=== PATIENT | male | born 1940 | race Caucasian/White ===

== ENCOUNTER 2022-11-14 05:09 | Observation (INO) ==
--- NOTE | 2022-10-10 14:59 | PAT Medication Instructions ---
Medication Instructions Date of Service October 10, 2022 Home Medications Medication Instructions Recorded atorvastatin 40 mg tablet 40 mg PO DAILY #90 tabs 10/02/21 metformin 1,000 mg tablet 1,000 mg PO BID #180 tabs 08/05/22 aspirin 81 mg tablet,delayed release (Adult Low Dose Aspirin) 81 mg PO QAM atorvastatin 40 mg tablet 40 mg PO DAILY cyanocobalamin (vitamin B-12) 2,000 mcg tablet 2,000 mcg PO QAM metformin 1,000 mg tablet 1,000 mg PO BID amlodipine 10 mg tablet 10 mg PO QAM atenolol 50 mg tablet 50 mg PO QAM empagliflozin 10 mg tablet (Jardiance) 10 mg PO PM lisinopril 40 mg tablet 40 mg PO QAM Continue as directed atorvastatin 40 mg tablet 40 mg PO DAILY STOP taking 3 days before surgery empagliflozin 10 mg tablet (Jardiance) 10 mg PO PM DO NOT take the morning of surgery lisinopril 40 mg tablet 40 mg PO QAM cyanocobalamin (vitamin B-12) 2,000 mcg tablet 2,000 mcg PO QAM metformin 1,000 mg tablet 1,000 mg PO BID Take morning of surgery With a small sip of water, OTHERWISE NOTHING TO EAT OR DRINK AFTER MIDNIGHT: aspirin 81 mg tablet,delayed release (Adult Low Dose Aspirin) 81 mg PO QAM (unless surgeon directed otherwise) amlodipine 10 mg tablet 10 mg PO QAM atenolol 50 mg tablet 50 mg PO QAM Take evening before surgery metformin 1,000 mg tablet 1,000 mg PO BID Other Notes If you have any questions please call us at [phone] or [phone] or [phone] or [phone]
--- NOTE | 2022-10-18 10:40 | Anesthesiology Consultation ---
Date of Service October 18, 2022 Assessment & Plan (1) Encounter for pre-operative examination: Chart Review Chart Review: Acceptable Risk for Surgery (pending cardiac clearance for new onset LBBB ) and Patient seen in Pre Admission Testing - Will set up for cardio clearance for new onset LBBB - Check BSG AM DOS -Due to age- patient is NOT an OPJ candidate Per PAT appt on 10/18/22, patient denies any recent travel or large group activities. Pt is vaccinated for Covid. Will leave to surgeon's discretion if preop Covid testing needed. Educated on importance of using Covid precautions one week prior to surgery Teaching & Discussion Pre-Anesthesia Teaching/Discussion Notes: Instructed NPO after midnight before surgery,except medications with 15 cc of water. Medication instructions provided according to the PAT guidelines. History Surgery Operation Date: 11/14/22 07:00 Proposed Procedures p Left Total Knee Arthroplasty - Drew Bella MD Height/Weight Height: 5 ft 8 in Weight: 81.9 kg Allergies Allergy/AdvReac Type Severity Reaction Status Date / Time No Known Allergies Allergy Verified 10/11/22 10:31 Medications Home Medications Medication Instructions Recorded Confirmed Last Taken aspirin 81 mg tablet,delayed 81 mg PO QAM 10/02/21 10/11/22 Unknown release (Adult Low Dose Aspirin) cyanocobalamin (vitamin B-12) 2,000 mcg PO QAM 10/02/21 10/11/22 Unknown 2,000 mcg tablet metformin 1,000 mg tablet 1,000 mg PO BID #180 tabs 08/05/22 10/11/22 Unknown amlodipine 10 mg tablet 10 mg PO QAM 10/10/22 10/11/22 Unknown atenolol 50 mg tablet 50 mg PO QAM 10/10/22 10/11/22 Unknown empagliflozin 10 mg tablet 10 mg PO PM 10/10/22 10/11/22 Unknown (Jardiance) lisinopril 40 mg tablet 40 mg PO QAM 10/10/22 10/11/22 Unknown Past Medical History Medical History (Updated 10/18/22 @ 11:16 by Haven Wells PA-C) CAD (coronary artery disease) Stent 25 years ago PCI to LAD and RCA 2007 per records Diabetes mellitus NIDDM Well controlled and stable DJD (degenerative joint disease) History of COVID-2019 > not hospitalized HLD (hyperlipidemia) HTN (hypertension) Proteinuria Seen by nephro 10/11/22- continue meds- follow up in one year Exercise / Class Metabolic Activity III < 4 Walking/Shop/Light housework (no chest pain or SOB with flat surface ambulation - uses cane only occ ) Past Family History Family History Mother Heart disease Father Cerebral aneurysm Brother Myocardial infarction Brother Myocardial infarction Denies family history of Ovarian cancer Prostate cancer Breast cancer Colorectal cancer Past Surgical History Surgical History H/O eye surgery right eye muscles / and bilat retina surgery as well H/O inguinal hernia repair H/O rotator cuff surgery bilateral History of cataract surgery bilat History of colonoscopy History of heart artery stent 25 yrs ago History of right shoulder replacement History of tooth extraction Past Anesthesia History No Hx of Anesthesia Complications and No Family Hx of Anesthesia Complications History of PONV No Hx of PONV and No Hx of Motion Sickness Social History Smoking Status: Never smoker Do You Dip or Chew Tobacco: No Hx Alcohol Use: No Hx Substance Use: No substance use type: does not use Review of Systems Patient denies chest pain, shortness of breath at rest, reflux, cough, wheezing, palpitations. No hx of seizures, stroke, SC, apnea/snoring. No hx of blood clots or blood transfusions Physical Exam Vital Signs VITALS BP 160/84 (manually) P 61 TEMP 98.3 SP02 96% RESP 16 Constitutional no acute distress ENMT Mouth: no TMJ clicking and not edentulous Thyromental Distance: > or= 3.5 Finger Breadths (4.0) Mallampati Class: II Full dentures on top and bottom Neck + limited neck extension Respiratory normal respiratory effort; no respiratory distress Auscultation: lungs clear to auscultation bilaterally; no wheezes Cardiovascular Rate/Rhythm: regular rate and regular rhythm Heart Sounds: + murmur (I-II/ murmur ) Vessels: no carotid bruit Heart sounds mildly diminished throughout Musculoskeletal Spine: + pain with cervical ROM Extremities: extremities normal to inspection Psychiatric Orientation: alert Lab Results Anesthesia Preop Results Results Anesthesia Widget: WBC 4.82 K/ul (4.8-10.8) 10/18/22 Hgb 15.0 g/dl (14.0-18.0) 10/18/22 Hct 44.7 % (42.0-52.0) 10/18/22 Plt 203 K/uL (130-400) 10/18/22 Na 140 mmol/L (136-145) 10/10/22 K 3.6 mmol/L (3.5-5.1) 10/10/22 Cl 104 mmol/L (98-107) 10/10/22 CO2 29 mmol/L (21-32) 10/10/22 BUN 17 mg/dl (6-23) 10/10/22 Creat 1.13 mg/dl (0.6-1.4) 10/10/22 Glucose Level 149 mg/dl (70-99(Fasting)) H 10/10/22 PT 11.4 Seconds (9.0-12.0) 10/18/22 PTT 26.5 Seconds (21.0-31.0) 10/18/22 INR 1.0 (0.9-1.1) 10/18/22 HA1c 6.4 % (4.5-5.6) H 09/13/22 Urine Color Yellow 10/10/22 Urine Appearance Clear (Clear) 10/10/22 Urine pH 7.0 (4.5-7.5) 10/10/22 Urine Specific Logan 1.020 (1.000-1.030) 10/10/22 Urine Protein Trace (Negative) H 10/10/22 Urine Glucose (UA) 3+ (Negative) H 10/10/22 Urine Ketones Negative (Negative) 10/10/22 Urine Blood Negative (Negative) 10/10/22 Urine Nitrite Negative (Negative) 10/10/22 Urine Bilirubin Negative (Negative) 10/10/22 Urine Urobilinogen Negative (Negative) 10/10/22 Urine Leukocyte Esterase Negative (Negative) 10/10/22 Urine WBC (Auto) 0 /hpf (0-5) 10/10/22 Urine RBC (Auto) 0-4 /hpf (0-4) 10/10/22 Urine Hyaline Casts (Auto) 0 /lpf (0-5) 10/10/22 Urine Epithelial Cells (Auto) 0-5 /lpf (0-5) 10/10/22 Urine Bacteria (Auto) Negative (Negative) 10/10/22 Blood Type O Positive 10/18/22 Antibody Screen NEGATIVE 10/18/22 Testing Electrocardiogram Date: 10/18/22 SB with 1st degree AVB at 59bpm LBBB When compared to EKG from December 01, 2014- ID interval has increased, LBBB is now present, PACs are no longer present per cardio Chest X-Ray Date: 10/18/22 Findings: + NAD FINDINGS: No pneumothorax. No pleural effusions. The cardiac silhouette is normal in size. The lungs are clear. A coronary artery stent is noted. There is a right shoulder prosthesis. Distal resection/resorption of the left clavicle remains unchanged. Mild calcifications within the aortic knob. IMPRESSION: No significant change compared to the prior study. No acute process. Echocardiogram Date: 05/08/21 EF: 55% LV Function: normal RWMA: + none Other Findings: + LVH (mild/concentric ) and + diastolic dysfunction (Grade I ) Mild AR. Other Testing CTA of the Head/Neck 05/07/21= No acute intracranial abnormality. No intracranial arterial flow-limiting stenosis or large vessel occlusion. Degenerative changes in cervical spine with unconvertebral/facet arthropathy contributing to focal moderate luminal narrowing in the right mid V2 segment and mild luminal narrowing in the right distal V2 segment. The remainder of the vertebrobasilar system is widely patent, with dominant left vertebral artery. Atherosclerosis at the common carotid artery bifurcations, right more than the left, without hemodynamically significant stenosis COVID-19 Risk Screen Screening Information COVID-19 Screen Date: 10/18/22 Exposure 21 Days Family/Household +COVID Last 21 Days: No Exposure 10 Days Any COVID Exposure Last 10 Days: No Symptoms Last 10 Days Experienced COVID Sx Last 10 Days: No + COVID 0-90 Days COVID + in Last 0-90 Days: No Risk Plan COVID Risk Plan: No Risk Identified Patient Education COVID Preop Screening Education Complete: Yes
--- NOTE | 2022-11-07 08:37 | History & Physical Report ---
Date of Service November 07, 2022 Assessment & Plan (1) Primary osteoarthritis of left knee: Plan: Treatment options discussed with patient. He would like to proceed with knee replacement. Risks, benefits and alternatives to surgery including but not limited to infection, DVT, pain, stiffness, need for revision surgery, damage to blood vessels, damage to nerves, PE, , were discussed with the patient and they wish to proceed. Plan on left total knee arthroplasty scheduled for 11/14/[address] Bella at [facility]. Plan on aspirin 81mg BID for 1 mo post op for DVT prophylaxis. Plan on home health PT. All questions answered. Patient will follow up post op. History of Present Illness Chief Complaint: Left knee pain Primary Care Provider: Lizbeth Moe, 82yo male with PMHx significant for HTN, DM2 who presents with ongoing left knee pain. Pain is interfering with his daily activity. He has failed conservative measures. He would like to proceed with surgical interfering. Patient denies headaches, sweats, fevers, chills, double vision, blurred vision, cough, sore throat, dysphagia, chest pain, sob, wheezing, n/v/d/c, numbness, tingling, fatigue, urinary symptoms, mood disorders. ROS positive for left knee pain and stiffness. Allergies Allergy/AdvReac Type Severity Reaction Status Date / Time No Known Allergies Allergy Verified 11/01/22 11:23 Home Medications Medication Instructions Recorded Confirmed Type aspirin 81 mg tablet,delayed 81 mg PO QAM 10/02/21 11/01/22 History release (Adult Low Dose Aspirin) cyanocobalamin (vitamin B-12) 2,000 mcg PO QAM 10/02/21 11/01/22 History 2,000 mcg tablet metformin 1,000 mg tablet 1,000 mg PO BID #180 tabs 08/05/22 11/01/22 Rx amlodipine 10 mg tablet 10 mg PO QAM 10/10/22 10/11/22 History atenolol 50 mg tablet 50 mg PO QAM 10/10/22 11/01/22 History empagliflozin 10 mg tablet 10 mg PO PM 10/10/22 11/01/22 History (Jardiance) lisinopril 40 mg tablet 40 mg PO QAM 10/10/22 11/01/22 History Past Med/Surg History Medical History CAD (coronary artery disease) Diabetes mellitus DJD (degenerative joint disease) History of COVID-19 HLD (hyperlipidemia) HTN (hypertension) Proteinuria Surgical History H/O eye surgery H/O inguinal hernia repair H/O rotator cuff surgery History of cataract surgery History of colonoscopy History of heart artery stent History of right shoulder replacement History of tooth extraction Family History Mother Heart disease Father Cerebral aneurysm Brother Myocardial infarction Brother Myocardial infarction Denies family history of Ovarian cancer Prostate cancer Breast cancer Colorectal cancer Social History Smoking Status: Never smoker Second Hand Exposure: No; Do You Dip or Chew Tobacco: No; Hx Alcohol Use: No Hx Substance Use: No Preferred Language: Japanese Communication Ability: Effective Visual Impairment: Partially Limited Hearing Ability: Normal Tacker Elastic Band Required: No Beliefs That Will Affect Care: None marital status: Current Living Situation: Spouse current occupational status: retired current occupation: [employer] How many Children do You have: 1 Feels Safe at Home: Yes Childhood Exposure to Second-Hand Smoke: No Diet: regular caffeine: Yes during the past year weight has: remained stable Dental Care, Regularly: No Physical Activity Frequency: Does not Exercise Seatbelt Use: always Sunscreen Use: No Do you think of yourself as: straight/heterosexual Gender Identity: Male Assistive Devices: Denture - Upper, Denture - Lower and Glasses Review of Systems All systems reviewed & are unremarkable except as noted in HPI & below Physical Exam Constitutional: well developed and well nourished; no acute distress Eyes: PERRL, conjunctivae normal, anicteric sclerae ENMT: external ear and nose normal, oropharynx normal Neck: trachea midline, no thyromegaly Respiratory: normal respiratory effort, lungs clear to auscultation Cardiovascular: RRR, no murmur, no edema Musculoskeletal: Left knee: ROM 10-100 degrees. Varus alignment. Medial joint line tenderness. Stable to valgus and varus stress test. Mild effusion. Crepitation with ROM. Skin: no rashes, warm and dry Neurologic: patellar DTR's 2+ bilat, sensation intact Psychiatric: A+Ox3, euthymic affect Results & Data Diagnostic Findings Left knee radiographs demonstrate [id number] medial compartment on flexion view. There is periarticular osteophyte formation.
[2022-11-14] MEDS ORDERED: TRANEXAMIC ACID 1,000 MG **IV Intra-op IV SCH (06:00)
[2022-11-14] MEDS ORDERED: ROPIVACAINE 0.5% HCL/PF 150 MG, BUPIVACAINE 0.75% MPF 20 ML, EPINEPHrine 30MG/30ML (OR ... INSTIL SCH (06:00)
[2022-11-14] MEDS ORDERED: LR 500ML BOLUS, THEN 15ML/HR IV SCH (06:00)
[2022-11-14] MEDS ORDERED: FAMOTIDINE 20 MG TAB PO SCH (06:00)
[2022-11-14] MEDS ORDERED: ACETAMINOPHEN 500 MG TAB PO SCH (06:00)
[2022-11-14] MEDS ORDERED: TRANEXAMIC ACID 1,000 MG **IV Pre-op IV SCH (06:00)
[2022-11-14] MEDS ORDERED: METOCLOPRAMIDE HCL 10 MG TABLET PO SCH (06:00)
[2022-11-14] MEDS ORDERED: CeleBREX 200 MG CAP PO SCH (06:00)
[2022-11-14] MEDS ORDERED: GABAPENTIN 300 MG CAP PO SCH (06:00)
[2022-11-14] MEDS ORDERED: ceFAZolin 2000MG 2,000 MG/15 ML SYR IV SCH (06:00)
[2022-11-14] MEDS ORDERED: ROPIVACAINE 0.5% 5 MG/ML 30 ML VIAL ONE (06:35)
[2022-11-14] MEDS ORDERED: HYDROmorphone INJ 1 MG/ML SYRINGE IV PRN (06:45)
[2022-11-14] MEDS ORDERED: ePHEDrine sulfate 50 MG/ML AMP IV PRN (06:45)
[2022-11-14] MEDS ORDERED: ATROPINE SULFATE 0.1 MG/ML 10ML SYR IV PRN (06:45)
[2022-11-14] MEDS ORDERED: ONDANSETRON INJ 2 MG/ML 2 ML VIAL IV PRN ×2 (06:45→10:31)
--- NOTE | 2022-11-14 07:05 | History & Physical Bridge Note ---
Date of Service November 14, 2022 History & Physical Bridge Note I have examined the patient, reviewed the History & Physical and in the interval since the performance of the History & Physical I have noted the following changes of clinical significance: no changes noted
--- NOTE | 2022-11-14 09:03 | Operative Report ---
Post Operative Report Pre & Post Diagnosis Operation Date: 11/14/22 07:00 Pre-Op Diagnosis: Left Knee Osteoarthritis Post-Op Diagnosis: Left Knee Osteoarthritis I identified the patient and participated in the time-out.: Yes Procedure Operation Date: 11/14/22 07:00 Actual Procedures p Left Total Knee Arthroplasty, Cemented(Left), lateral release, lani Acticoat superficial wound VAC- Drew Bella MD Surgeon Drew Bella MD Leader Tier Shane STEINBERG Estimated Blood Loss 5 Findings Consistent with Post-Op Diagnosis Specimens Bone cuts Drains 2 Hemovac Anesthesia Type MAC Spinal Regional Complications none Disposition Disposition: Recovery Room Indications 82-year-old male with chronic bilateral knee pain failed conservative management. Left knee most painful. Patient has an incidental enchondroma of the femur not likely causing his pain. Patient has grade 4 osteoarthritis medial compartment and patellofemoral osteoarthritis. Proceed with total knee replacement Description of Procedure Patient was taken to the operating room placed supine on the operating table and anesthetized under spinal MAC regional block anesthesia. Exam under anesthesia demonstrated good range of motion no pseudolaxity some edema of his lower leg no instability. A pneumatic tourniquet was placed about the thigh of the left lower extremity. The left lower extremity was prepped and draped in usual sterile fashion. The leg was elevated exsanguinated with an Esmarch bandage and the pneumatic tourniquet was raised to 325 mm mercury. An anterior incision was made across the left knee. The skin was incised longitudinally subcutaneous flaps were elevated and an incision was made through the medial retinaculum extending up into the mid third of the quadriceps tendon and extended down to the medial tibial tubercle. Intra-articular findings demonstrated grade 4 medial compartment osteoarthritis [id number] with grade 2-3 patellofemoral chondromalacia. There were multiple cysts anteriorly adjacent to the ACL area.. The knee was exposed by excising the infrapatellar fat pad, excising the cysts and menisci and anterior cruciate ligament. Any inflamed synovial tissue was resected. The fat pad over the anterior femur was resected for placement of the component in that area. The lateral synovial bands were release. The femur was exposed. The custom femoral cutting block was pinned in position. The distal femoral cutting block was applied. The distal femoral cut was made with the oscillating saw. The size 11, 4-in-1 cutting block was placed. The anterior and posterior chamfer cuts were made. The knee was extended and a subperiosteal peel lateral release was performed around the patella. The patella width was measured and width was reproduced using freehand cut technique. The 33 x 8.5 millimeter symmetrical patella was used. 3 drill holes are made for the pegs. The tibia was exposed. A custom tibial cutting block was positioned and drill holes were made for the cutting guide. Cutting guide was placed and the proximal cut was made with the oscillating saw. I resected +2 on the tibia to get below the most deficient bone loss on the medial tibial plateau. All osteophytes were resected. The lamina wood router was used to assess ligamentous balance and the ligaments were balanced in extension and flexion. No releases were required. The tibia was reexposed and measured for a size F tibial component. This was externally rotated in line with the tibial tubercle and the fixation pins were drilled. The proximal tibia was fashioned with the drill and punch. The size 11 CR femoral trial was inserted. The trial MC inserts were used. The 13 mm insert gave balanced ligaments through full range of motion. The patella tracked with lateral tilt so had to do a laterally significant synovium intact and the geniculate vessels intact. Patella tracks centrally through full motion. The trials were removed. The orthomix anesthetic cocktail was injected per protocol. The knee was then copiously irrigated with pulsatile lavage saline solution. The final components were cemented with Refobacin bone cement. The final components were 11 narrow CR Natalee [employer] persona femoral component, size F left tibia component, a 13 mm left MC tibial polyethylene and a 32 x 8.5 mm polyethylene symmetrical patella. After the cement cured with the knee in full extension the Betadine soak was used per protocol. The knee joint was copiously irrigated with pulsatile lavage saline solution . 2 drains were brought out laterally and connected to a Hemovac. The quadriceps tendon and medial retinaculum were closed with interrupted [id number] #1 Vicryl sutures. The knee was taken through a full range of motion which was 0 through 130 degrees and the repair was secure. The subcutaneous tissues were closed with 2-0 Vicryl sutures and skin was closed with timmy.A Lani and Acticoat superficial wound VAC was applied and the patient tolerated the procedure well. Shane STEINBERG my physician chiropractor assistant participated as sound assistant and was an integral part in all aspects of the procedure, he assisted in soft tissue retraction, instrument management ,leg positioning, the closure, application of the superficial wound VAC and will participate in the postoperative care of the patient. I attest to the content of the Intraoperative Record and any orders documented therein. Any exceptions are noted below.
[2022-11-14] MEDS ORDERED: ORTHO JOINT ANESTHETIC ONE (09:36)
--- NOTE | 2022-11-14 09:59 | XRay Report ---
XR knee LT 1 or 2V routine HISTORY: 82 years-old Male Surgical Post Op left knee arthroplasty COMPARISON: None TECHNIQUE: 2 views of the left knee FINDINGS: Total joint arthroplasty with patellar resurfacing. Anterior midline skin timmy with expected posto perative soft tissue swelling and deep tissue air. Surgical drainage catheter. No acute fracture, mal alignment or unexpected opaque foreign body. IMPRESSION: Total joint arthroplasty with expected postoperative changes. ACT 112: Negative or not required by law. The above report was generated using voice recognition software. It may contain grammatical, syntax o r spelling errors. Electronically signed by: Tino Oliver M.D. 11/14/2022 9:58 AM
[2022-11-14] MEDS ORDERED: NALOXONE HCL 0.4 MG/1 ML VIAL/CARP IV PRN (10:31)
[2022-11-14] MEDS ORDERED: HYDROmorphone INJ 0.5 MG/0.5 ML SYR IV PRN (10:31)
[2022-11-14] MEDS ORDERED: MAGNESIUM HYDROXIDE SUSP 30 ML UDC PO PRN (10:31)
[2022-11-14] MEDS ORDERED: bisacodyL 10 MG SUPP PR PRN (10:31)
[2022-11-14] MEDS ORDERED: oxyCODONE HCL IR 5 MG TAB (IMMEDIATE RELEASE) PO PRN (10:31)
[2022-11-14] MEDS ORDERED: PHARMACY GLYCEMIC MGMT CONSULT PRN (10:31)
[2022-11-14] MEDS ORDERED: diphenhydrAMINE 50 MG/ML VIAL IV PRN (10:31)
[2022-11-14] MEDS: SODIUM CHLORIDE 0.9% 1000ML 1,000 ML IV SCH ×2 (11:03→23:25)
--- NOTE | 2022-11-14 11:27 | Hospitalist Consultation ---
Date of Consultation November 14, 2022 Assessment & Plan (1) Primary osteoarthritis of left knee: Left total knee arthroplasty 2/2 OA DVT prophylaxis, pain control, activity restrictions per primary team Uncomplicated by report with 5 cc blood loss No pain postoperatively, neurovascularly intact at bedside assessment CAD with history of PCI with JAYE to mid LAD/distal RCA 2007 - Echo 11/08/2022: EF 55 to 60%, LV SF normal, grade 1 diastolic dysfunction, mild AI/MR/TR EF at time of stenting was 45%, last echo as noted with improvement to 55-60% Myocardial stress test was performed 11/10/2022 with normal LV size and low normal systolic function, EF 49% with inferior basal wall motion abnormality, and no inducible ischemia/no inducible EKG changes Continue amlodipine 10 mg daily Continue aspirin 81 mg daily at minimum, this has been increased to twice daily by primary team for DVT prophylaxis Continue atenolol 50 mg daily Resume lisinopril 11/15/2022 if normotensive and creatinine normal, if hypotensive or elevated creatinine hold until 11/16 Jardiance as noted Type II DM Goal BSG [id number] Type II DM diet, glucose checks AC/at bedtime Pharmacy glycemic management in place by primary team At time of assessment adequate glycemic control. History of proteinuria without CKD Has followed with neurology in the past, moderate proteinuria which improved on subsequent testing No acute intervention at this time Trend BMP daily Hypertension Atenolol/lisinopril/amlodipine/aspirin as noted Dyslipidemia Continue outpatient follow-up, no acute change in management DVT prophylaxis: Aspirin twice daily per primary team. Patient denies personal and family history of blood clots. Diet: Heart healthy Disposition: Medical surgical CODE STATUS: Full code In summary Mr. Villanueva is a pleasant 82-year-old with a history of stable coronary artery disease with history of PCI and no evidence of inducible ischemia preoperatively who underwent left total knee arthroplasty and is doing well postop. No chest pain or chest pressure, he is breathing normally. Recommended continuing his home cardiac, blood pressure medications as noted. Aspirin has been increased to twice daily for DVT prophylaxis. He does not have any epigastric discomfort, if any develops add Protonix 40 mg daily for ulcer prophylaxis. Morning labs have been ordered, medicine will chart review in the morning otherwise we will sign off. Please feel free to reconsult with any acute concerns. (2) CAD (coronary artery disease): (3) HLD (hyperlipidemia): (4) HTN (hypertension): (5) Diabetes mellitus: (6) Proteinuria: History of Present Illness Reason for Consultation: Postop management Attending Physician: Drew Bella MD History of Present Illness Jewel Villanueva is an 82-year-old male with a past medical history of CAD and PCI, left bundle branch block, hyperlipidemia, hypertension, DM, degenerative joint disease who presented for left total knee arthroplasty 2/2 OA. We are consulted for medical management of comorbidities Miller is seen the bedside postoperatively with his present. He reports he feels well, and has no pain whatsoever. He has had sensation returned to his left foot and has no numbness or tingling. Is able to wiggle his toes comfortably. Has not yet tried to be out of bed or sit up. Has been using incentive spirometer. Denies fever, chills, chest pain, chest pressure, shortness of breath, difficulty breathing, lightheadedness, dizziness, presyncope, syncope. He reports he did have his Rays[place] scan which was reportedly normal, although he cannot remember where this was done. Overall feels well and reports he has no questions/concerns at time of bedside assessment. He reports he took his medications as directed yesterday, and did take his atenolol/aspirin today. He did not take lisinopril today. Medical History: Reviewed Medications: Reviewed Surgical History: Reviewed Family history: Reviewed Allergies: Reviewed. No known drug allergies Social History: Reviewed Code Status: Full Allergies Allergy/AdvReac Type Severity Reaction Status Date / Time No Known Allergies Allergy Verified 11/14/22 05:42 Home Medications Medication Instructions Recorded Confirmed Type aspirin 81 mg tablet,delayed 81 mg PO QAM 10/02/21 11/14/22 History release (Adult Low Dose Aspirin) cyanocobalamin (vitamin B-12) 2,000 mcg PO QAM 10/02/21 11/14/22 History 2,000 mcg tablet metformin 1,000 mg tablet 1,000 mg PO BID #180 tabs 08/05/22 11/14/22 Rx amlodipine 10 mg tablet 10 mg PO QAM 10/10/22 11/14/22 History atenolol 50 mg tablet 50 mg PO QAM 10/10/22 11/14/22 History empagliflozin 10 mg tablet 10 mg PO PM 10/10/22 11/14/22 History (Jardiance) lisinopril 40 mg tablet 40 mg PO QAM 10/10/22 11/14/22 History Patient History Medical History CAD (coronary artery disease) Stent 25 years ago PCI to LAD and RCA 2007 per records Diabetes mellitus NIDDM Well controlled and stable DJD (degenerative joint disease) History of COVID-2019 > not hospitalized HLD (hyperlipidemia) HTN (hypertension) Proteinuria Seen by nephro 10/11/22- continue meds- follow up in one year Surgical History H/O eye surgery right eye muscles / and bilat retina surgery as well H/O inguinal hernia repair H/O rotator cuff surgery bilateral History of cataract surgery bilat History of colonoscopy History of heart artery stent 25 yrs ago History of right shoulder replacement History of tooth extraction Family History Mother Heart disease Father Cerebral aneurysm Brother Myocardial infarction Brother Myocardial infarction Denies family history of Ovarian cancer Prostate cancer Breast cancer Colorectal cancer Social History Smoking Status: Former smoker Second Hand Exposure: No; Do You Dip or Chew Tobacco: No; Tobacco Cessation Education Requested by Patient: No Hx Alcohol Use: No Hx Substance Use: No Preferred Language: Monegasque Communication Ability: Effective Visual Impairment: Partially Limited Hearing Ability: Normal Gas Torch Brazier Required: No Beliefs That Will Affect Care: None marital status: Current Living Situation: Spouse current occupational status: retired current occupation: [employer] How many Children do You have: 1 Other Information That Helps Us Care for You: No Feels Safe at Home: Yes Safety Concerns: Feels Safe At This Time Childhood Exposure to Second-Hand Smoke: No Diet: regular caffeine: Yes during the past year weight has: remained stable Dental Care, Regularly: No Physical Activity Frequency: Does not Exercise Seatbelt Use: always Sunscreen Use: No Do you think of yourself as: straight/heterosexual Gender Identity: Male Assistive Devices: Cane Review of Systems Review of Systems: All systems reviewed & are unremarkable except as noted in Subjective Physical Exam Physical Exam: General: Alert and oriented to name, place and answers questions/follows commands appropriately HEENT: Atraumatic, normocephalic. Vision and hearing grossly intact Pulm: CTAB A&P. -wheezes, -rales, -rhonchi. Symmetrical chest rise. No increased work of breathing. No respiratory distress. Cardiac: RRR, +sm. Radial pulses intact and symmetrical. Abdominal: Nontender, nondistended, soft. BS present. Extremities: Left knee and postop dressing and ice pack. Drain in place draining sanguinous material, scant amount. Sensation of soft touch is intact in feet and ankles bilaterally without asymmetry. Ankle dorsiflexion/plantarflexion and toe wiggle intact bilaterally. PT pulse intact bilaterally. [employer] strength intact bilaterally, moves upper extremities equally. Results & Data Results & Data Vital Signs (Past 12 Hours) Vital Signs Temp Pulse Pulse Resp BP Pulse Ox O2 Del Method 11/14/22 11:01 36.4 C L 53 L 16 159/80 H 98 Room Air 11/14/22 10:31 36.4 C L 52 L 16 133/72 97 Nasal Cannula 11/14/22 10:00 52 L 18 143/70 H 93 Nasal Cannula 11/14/22 09:50 49 L 20 144/71 H 95 Nasal Cannula 11/14/22 09:40 56 L 18 146/70 H 96 Nasal Cannula 11/14/22 10:10 36.5 C 47 L 14 143/72 H 96 Nasal Cannula 11/14/22 09:30 57 L 20 159/73 H 96 Nasal Cannula 11/14/22 09:24 36.1 C L 65 18 150/78 H 92 Nasal Cannula 11/14/22 05:48 36.4 C L 54 L 18 181/78 H 97 Room Air O2 Flow Rate 11/14/22 11:01 11/14/22 10:31 2 11/14/22 10:00 3 11/14/22 09:50 3 11/14/22 09:40 3 11/14/22 10:10 2 11/14/22 09:30 4 11/14/22 09:24 4 11/14/22 05:48 PG Care Time/CCT Total # of Minutes Spent Total Time Spent with Patient: Total time spent is greater than 50% in coordination of care (as documented) at patient's floor/unit and/or counseling patient: Coding Level of Care Code 10897 IN/OBS CONSULT LVL 3,45M Diagnoses Primary osteoarthritis of left knee M17.12 CAD (coronary artery disease) I25.10 HLD (hyperlipidemia) E78.5 HTN (hypertension) I10 Diabetes mellitus E11.9 Proteinuria R80.9
--- NOTE | 2022-11-14 12:16 | Anesthesiology Progress Note ---
Date of Service November 14, 2022 Anesthesia Post Procedure Vital Signs Vital Signs: Temp Pulse Pulse Resp BP Pulse Ox O2 Del Method 11/14/22 11:33 36.6 C 50 L 16 157/77 H 98 Room Air 11/14/22 11:01 36.4 C L 53 L 16 159/80 H 98 Room Air 11/14/22 10:31 36.4 C L 52 L 16 133/72 97 Nasal Cannula 11/14/22 10:00 52 L 18 143/70 H 93 Nasal Cannula 11/14/22 09:50 49 L 20 144/71 H 95 Nasal Cannula 11/14/22 09:40 56 L 18 146/70 H 96 Nasal Cannula 11/14/22 10:10 36.5 C 47 L 14 143/72 H 96 Nasal Cannula 11/14/22 09:30 57 L 20 159/73 H 96 Nasal Cannula 11/14/22 09:24 36.1 C L 65 18 150/78 H 92 Nasal Cannula 11/14/22 05:48 36.4 C L 54 L 18 181/78 H 97 Room Air O2 Flow Rate 11/14/22 11:33 11/14/22 11:01 11/14/22 10:31 2 11/14/22 10:00 3 11/14/22 09:50 3 11/14/22 09:40 3 11/14/22 10:10 2 11/14/22 09:30 4 11/14/22 09:24 4 11/14/22 05:48 Pain Intensity Left Knee: Pain Intensity: 6 Transfer of Care Handoff Completed per policy Notes Mental Status: alert / awake / arousable Patient Amnestic to Procedure: Yes Nausea / Vomiting: adequately controlled Pain: adequately controlled Airway Patency, RR, SpO2: stable & adequate BP & HR: stable & adequate Hydration State: stable & adequate Anesthetic Complications: no major complications apparent
--- NOTE | 2022-11-14 12:47 | Pharmacy Report ---
Pharmacy Glycemic Short Note 2 - Date of Service November 14, 2022 - Glycemic Short BSG Results (Last 24 hours): 11/14/22 11/14/22 11/14/22 05:45 09:45 12:07 POC Glucose 146 H 122 H 108 H OUTPATIENT ANTIDIABETIC REGIMEN: * Empagliflozin 10 mg HS, Metformin 1,000 mg BID * A1c 6.4% 09/13/22 ASSESSMENT: * Patient admitted post-op Left knee arthroplasty * BSGs have been at goal thus far * Will start loose novolog and hold on basal for now- monitor PLAN FOR INPATIENT GLYCEMIC CONTROL: * Hold metformin- continuing empagliflozin * Basal insulin * hold * Bolus insulin * NovoLog per scale ACHS or Q6hrs while NPO * Goal Range: Low 120 mg/dL - High 160 mg/dL * Correction Factor: 45 mg/dL/unit * Nutritional / Prandial insulin per carb ratio of 1 unit per 20 grams CHO consumed
[2022-11-14] MEDS: INSULIN ASPART PER UNIT CHARGE SC SCH ×3 (13:35→21:06)
[2022-11-14] MEDS: ACETAMINOPHEN 500 MG TAB PO SCH ×2 (13:57→21:04)
[2022-11-14] MEDS: ceFAZolin 2000MG 2,000 MG/15 ML SYR IV SCH ×2 (16:07→23:04)
[2022-11-14] MEDS ORDERED: metFORMIN HCL 500 MG TAB PO SCH (21:00)
[2022-11-14] MEDS ORDERED: SENNA 8.6 MG TAB PO SCH (21:00)
[2022-11-14] MEDS ORDERED: EMPAGLIFLOZIN 10 MG TAB PO SCH (21:00)
[2022-11-14] MEDS: ASPIRIN 81 MG ECTAB PO SCH (21:03)
[2022-11-14] MEDS: DOCUSATE SODIUM 100 MG CAP PO SCH (21:05)
[2022-11-15] MEDS: ACETAMINOPHEN 500 MG TAB PO SCH (05:32)
[2022-11-15 06:37] LABS: Hematocrit (blood only) 38.6 % (42.0-52.0); Hemoglobin 13.1 g/dl (14.0-18.0); Mean Corpuscular Hgb Conc 33.9 g/dL (32.0-36.0); Mean Corpuscular Volume 88.5 fL (80.0-100.0); Platelet Count 200 K/uL (130-400); RDW Standard Deviation 42.4 fL (36.4-46.3); Red Blood Count 4.36 M/uL (4.70-6.10)
[2022-11-15 06:58] LABS: Calcium 8.6 mg/dl (8.6-10.3); Creatinine Clr Calc Pharmacy 55.5 ml/min; Est GFR (African American) 73.5 ml/min; Est GFR (Non-African American) 63.4 ml/min; Potassium 3.5 mmol/L (3.5-5.1)
[2022-11-15] MEDS: DOCUSATE SODIUM 100 MG CAP PO SCH (07:30)
[2022-11-15] MEDS: ASPIRIN 81 MG ECTAB PO SCH (07:31)
[2022-11-15] MEDS: INSULIN ASPART PER UNIT CHARGE SC SCH (07:38)
[2022-11-15] MEDS ORDERED: ATENOLOL 50 MG TABLET PO SCH (09:00)
[2022-11-15] MEDS ORDERED: amLODIPine BESYLATE 5 MG TAB PO SCH (09:00)
[2022-11-15] MEDS ORDERED: lisinopril 40 MG TAB PO SCH (09:00)
[2022-11-15] MEDS ORDERED: MULTIVITAMIN TAB PO SCH (09:00)
--- NOTE | 2022-11-15 09:10 | Orthopedic Progress Note ---
Date of Service November 15, 2022 Assessment & Plan (1) Primary osteoarthritis of left knee: Plan: Postop day 1 status post left total knee arthroplasty. PT/OT protocols. Weightbearing as tolerated. DVT prophylaxis-aspirin p.o. twice daily, BRYANNA Romero. Pain management as written. DC planning-patient is planning for outpatient PT upon discharge. Admission and Anticipated Discharge Date Admission Date: November 14, 2022 Subjective Postop day 1 Patient sitting in his chair at the bedside. Getting ready to start his therapy session. No complaints this morning. Pain is controlled. Denies shortness of breath, chest pain, lightheadedness Physical Exam Physical Exam: Dressings are clean, dry, and intact. Calves are soft nontender. Neurovascular is intact. Toes are mobile. He has good dorsiflexion and plantarflexion of the left foot. Hemovac drainage was 150 mL from the previous shift. Results & Data Vital Signs (Past 12 Hours) Vital Signs Temp Pulse Resp BP Pulse Ox O2 Del Method 11/15/22 05:50 36.9 C 61 20 167/77 H 95 Room Air 11/15/22 03:12 36.7 C 54 L 16 160/75 H 95 Room Air 11/14/22 22:59 36.6 C 55 L 16 148/72 H 95 Room Air Laboratory Results Laboratory Results WBC 6.90 K/ul (4.8-10.8) 11/15/22 05:29 RBC 4.36 M/uL (4.70-6.10) L 11/15/22 05:29 Hgb 13.1 g/dl (14.0-18.0) L 11/15/22 05:29 Hct 38.6 % (42.0-52.0) L 11/15/22 05:29 MCV 88.5 fL (80.0-100.0) 11/15/22 05:29 MCH 30.0 pg (25.0-34.0) 11/15/22 05:29 MCHC 33.9 g/dL (32.0-36.0) 11/15/22 05:29 RDW Std Deviation 42.4 fL (36.4-46.3) 11/15/22 05:29 RDW Coeff of Baldev 13.0 % (11.5-14.5) 11/15/22 05:29 Plt Count 200 K/uL (130-400) 11/15/22 05:29 MPV 10.0 fL (9.4-12.4) 11/15/22 05:29 Sodium 142 mmol/L (136-145) 11/15/22 05:29 Potassium 3.5 mmol/L (3.5-5.1) 11/15/22 05:29 Chloride 107 mmol/L (98-107) 11/15/22 05:29 Carbon Dioxide 29 mmol/L (21-32) 11/15/22 05:29 Anion Gap 6 (3-11) 11/15/22 05:29 BUN 16 mg/dl (6-23) 11/15/22 05:29 Creatinine 1.07 mg/dl (0.6-1.4) 11/15/22 05:29 Est Cr Clr Drug Dosing 55.5 ml/min 11/15/22 05:29 Est GFR ( Amer) 73.5 ml/min 11/15/22 05:29 Est GFR (Non-Af Amer) 63.4 ml/min 11/15/22 05:29 BUN/Creatinine Ratio 15.0 (10-20) 11/15/22 05:29 Glucose 97 mg/dl (70-99(Fasting)) 11/15/22 05:29 POC Glucose 104 mg/dl (70-99) H 11/15/22 06:42 Calcium 8.6 mg/dl (8.6-10.3) 11/15/22 05:29 SARS-CoV-2, RNA, NAAT NEGATIVE (NEGATIVE) 11/14/22 05:29 Impressions Knee X-Ray 11/14/22 09:37 XR knee LT 1 or 2V routine HISTORY: 82 years-old Male Surgical Post Op left knee arthroplasty COMPARISON: None TECHNIQUE: 2 views of the left knee FINDINGS: Total joint arthroplasty with patellar resurfacing. Anterior midline skin timmy with expected postoperative soft tissue swelling and deep tissue air. Surgical drainage catheter. No acute fracture, malalignment or unexpected opaque foreign body. IMPRESSION: Total joint arthroplasty with expected postoperative changes. ACT 112: Negative or not required by law. The above report was generated using voice recognition software. It may contain grammatical, syntax or spelling errors. Electronically signed by: Tino Oliver M.D. 11/14/2022 9:58 AM
--- NOTE | 2022-11-15 12:18 | Discharge Summary ---
Date of Service November 15, 2022 Admission HPI Per Admitting Provider 82yo male with PMHx significant for HTN, DM2 who presents with ongoing left knee pain. Pain is interfering with his daily activity. He has failed conservative measures. He would like to proceed with surgical interfering. Patient denies headaches, sweats, fevers, chills, double vision, blurred vision, cough, sore throat, dysphagia, chest pain, sob, wheezing, n/v/d/c, numbness, tingling, fatigue, urinary symptoms, mood disorders. ROS positive for left knee pain and stiffness. Admission Exam Per Admitting Provider Constitutional: well developed and well nourished; no acute distress Eyes: PERRL, conjunctivae normal, anicteric sclerae ENMT: external ear and nose normal, oropharynx normal Neck: trachea midline, no thyromegaly Respiratory: normal respiratory effort, lungs clear to auscultation Cardiovascular: RRR, no murmur, no edema Musculoskeletal: Left knee: ROM 10-100 degrees. Varus alignment. Medial joint line tenderness. Stable to valgus and varus stress test. Mild effusion. Crepitation with ROM. Skin: no rashes, warm and dry Neurologic: patellar DTR's 2+ bilat, sensation intact Psychiatric: A+Ox3, euthymic affect Principal Diagnosis Left knee osteoarthritis Discharge Exam Dressings are clean, dry, and intact. Calves are soft nontender. Neurovascular is intact. Toes are mobile. He has good dorsiflexion and plantarflexion of the left foot. Hemovac drainage was 150 mL from the previous shift. Constitutional well developed and well nourished; no acute distress Discharge Data Allergies Allergy/AdvReac Type Severity Reaction Status Date / Time No Known Allergies Allergy Verified 11/14/22 05:42 Consultations 11/11/22 14:34 Consult Hospitalist Routine Procedures Performed Operation Date: 11/14/22 07:00 Actual Procedures p Left Total Knee Arthroplasty, Cemented(Left) - Drew Bella MD Ordered Studies 11/14/22 05:00 US - OR guided needle placemen Routine Hospital Course (1) Primary osteoarthritis of left knee: Postop day 1 status post left total knee arthroplasty. PT/OT protocols. Weightbearing as tolerated. DVT prophylaxis-aspirin p.o. twice daily, SCDs, BRYANNA romo. Pain management as written. DC planning-patient is planning for outpatient PT upon discharge. Lab Results 11/14/22 11/14/22 11/14/22 Range/Units 05:29 05:45 09:45 WBC (4.8-10.8) K/ul RBC (4.70-6.10) M/uL Hgb (14.0-18.0) g/dl Hct (42.0-52.0) % MCV (80.0-100.0) fL MCH (25.0-34.0) pg MCHC (32.0-36.0) g/dL RDW Std Deviation (36.4-46.3) fL RDW Coeff of Baldev (11.5-14.5) % Plt Count (130-400) K/uL MPV (9.4-12.4) fL Sodium (136-145) mmol/L Potassium (3.5-5.1) mmol/L Chloride (98-107) mmol/L Carbon Dioxide (21-32) mmol/L Anion Gap (3-11) BUN (6-23) mg/dl Creatinine (0.6-1.4) mg/dl Est Cr Clr Drug Dosing ml/min Est GFR ( Amer) ml/min Est GFR (Non-Af Amer) ml/min BUN/Creatinine Ratio (10-20) Glucose (70-99(Fasting)) mg/dl POC Glucose 146 H 122 H (70-99) mg/dl Calcium (8.6-10.3) mg/dl SARS-CoV-2, RNA, NAAT NEGATIVE (NEGATIVE) 11/14/22 11/14/22 11/14/22 Range/Units 12:07 16:53 20:44 WBC (4.8-10.8) K/ul RBC (4.70-6.10) M/uL Hgb (14.0-18.0) g/dl Hct (42.0-52.0) % MCV (80.0-100.0) fL MCH (25.0-34.0) pg MCHC (32.0-36.0) g/dL RDW Std Deviation (36.4-46.3) fL RDW Coeff of Baldev (11.5-14.5) % Plt Count (130-400) K/uL MPV (9.4-12.4) fL Sodium (136-145) mmol/L Potassium (3.5-5.1) mmol/L Chloride (98-107) mmol/L Carbon Dioxide (21-32) mmol/L Anion Gap (3-11) BUN (6-23) mg/dl Creatinine (0.6-1.4) mg/dl Est Cr Clr Drug Dosing ml/min Est GFR ( Amer) ml/min Est GFR (Non-Af Amer) ml/min BUN/Creatinine Ratio (10-20) Glucose (70-99(Fasting)) mg/dl POC Glucose 108 H 115 H 233 H (70-99) mg/dl Calcium (8.6-10.3) mg/dl SARS-CoV-2, RNA, NAAT (NEGATIVE) 11/15/22 11/15/22 11/15/22 Range/Units 05:29 05:29 06:42 WBC 6.90 (4.8-10.8) K/ul RBC 4.36 L (4.70-6.10) M/uL Hgb 13.1 L (14.0-18.0) g/dl Hct 38.6 L (42.0-52.0) % MCV 88.5 (80.0-100.0) fL MCH 30.0 (25.0-34.0) pg MCHC 33.9 (32.0-36.0) g/dL RDW Std Deviation 42.4 (36.4-46.3) fL RDW Coeff of Baldev 13.0 (11.5-14.5) % Plt Count 200 (130-400) K/uL MPV 10.0 (9.4-12.4) fL Sodium 142 (136-145) mmol/L Potassium 3.5 (3.5-5.1) mmol/L Chloride 107 (98-107) mmol/L Carbon Dioxide 29 (21-32) mmol/L Anion Gap 6 (3-11) BUN 16 (6-23) mg/dl Creatinine 1.07 (0.6-1.4) mg/dl Est Cr Clr Drug Dosing 55.5 ml/min Est GFR ( Amer) 73.5 ml/min Est GFR (Non-Af Amer) 63.4 ml/min BUN/Creatinine Ratio 15.0 (10-20) Glucose 97 (70-99(Fasting)) mg/dl POC Glucose 104 H (70-99) mg/dl Calcium 8.6 (8.6-10.3) mg/dl SARS-CoV-2, RNA, NAAT (NEGATIVE) 11/15/22 Range/Units 12:08 WBC (4.8-10.8) K/ul RBC (4.70-6.10) M/uL Hgb (14.0-18.0) g/dl Hct (42.0-52.0) % MCV (80.0-100.0) fL MCH (25.0-34.0) pg MCHC (32.0-36.0) g/dL RDW Std Deviation (36.4-46.3) fL RDW Coeff of Baldev (11.5-14.5) % Plt Count (130-400) K/uL MPV (9.4-12.4) fL Sodium (136-145) mmol/L Potassium (3.5-5.1) mmol/L Chloride (98-107) mmol/L Carbon Dioxide (21-32) mmol/L Anion Gap (3-11) BUN (6-23) mg/dl Creatinine (0.6-1.4) mg/dl Est Cr Clr Drug Dosing ml/min Est GFR ( Amer) ml/min Est GFR (Non-Af Amer) ml/min BUN/Creatinine Ratio (10-20) Glucose (70-99(Fasting)) mg/dl POC Glucose 121 H (70-99) mg/dl Calcium (8.6-10.3) mg/dl SARS-CoV-2, RNA, NAAT (NEGATIVE) Total Time Total Time Spent Total Time Spent (In Minutes): 20 Discharge Plan Discharge Items Patient Disposition: Home - Self-Care Reason For Visit: Left Knee Osteoarthritis Discharge Diagnosis: Left knee osteoarthritis Activity: Per Instructions section Weightbearing: Left weightbearing Weightbearing Comment: As tolerated with walker Non-emergency contact: Surgeon Call non-emergency contact if: you have any medication questions, your pain is not controlled, your pain is concerning for you, you have a fever, your temperature is above 101, your wound has increased redness and your wound has increased drainage Follow-up/Referrals: Lizbeth Moe-DO Kenyatta [Primary Care Provider] - Drew Bella MD [Surgeon] - (Follow-up with Dr. Bella or his PA in 2 weeks for your first postoperative visit.) Diet: Regular Addtl Attending Provider Instructions: ACTIVITY RECOMMENDATIONS: SELF CARE INSTRUCTIONS AFTER TOTAL KNEE REPLACEMENT A. You may need to continue a physical therapy program after discharge from the hospital. There are several options available to you. Your doctor will assist you in selecting the best one for you. 1. An out-patient facility 2 to 3 times a week for therapy or home therapy. 2. Continue working on all exercises taught to you in the hospital. Your goals should be to increase bending of your knee to 90 degrees and beyond and to fully straighten your knee. B. You may progress at your own pace from walking with a walker or crutches to a cane; then to no assistive devices. C. Make walking a part of your daily routine. Be up as much as comfortable with rest periods throughout the day. Rest with leg elevation is very important. Use the ice wrap frequently for the first 3-4 weeks. D. There are no restrictions on activities. You may ride in a car, shop, participate in sales promotion coordinator and all social activities. E. Wear the long elastic stockings (BRYANNA hose) 20 hours a day for 2 weeks after surgery. They can be removed several times a day for laundering and for a bath. F. You may shower, no tub baths until cleared by your doctor. SPECIAL CARE INSTRUCTIONS: VERY IMPORTANT TO READ AND REVIEW A. There are a few signs you need to watch for after you are home. Call [facility] if you notice any of the followin. Increased severe knee pain. Some pain is expected especially when you exercise. 2. Increased swelling in your leg or knee; pain or swelling of the calf muscle in either lower leg. 3. Any fluid drainage from the incision. 4. Shortness of breath or chest pain. B. Please call [facility] at if you have any concerns or questions about your operation or recovery. The doctor or his nurse will return your call promptly. C. You must take antibiotics before dental work, bladder, bowel or other surgery. Your doctor will provide you with a permanent care to carry describing this precaution. IMPORTANT: * REMEMBER TO TAKE ASPIRIN, 81 MG, TWICE DAILY FOR 4 WEEKS UNLESS OTHERWISE DIRECTED. THIS IS YOUR BLOOD THINNER. * HIGH RISK PATIENTS MAY BE PRESCRIBED A STRONGER BLOOD THINNER. THIS WILL BE PROVIDED AT DISCHARGE. * CALL IF INCREASED PAIN, REDNESS, DRAINAGE OR FEVER GREATER THAT 101. * WEAR BRYANNA HOSE 20 HOURS PER DAY FOR 2 WEEKS. This is a large suction dressing covering your incision. This will help pull any excess drainage from the wound and allow your incision to heal properly. You may shower with this if you can keep the unit outside of the shower. If any bleeding or leakage is noted please call your doctor's office. This will remain on your incision for 7 days and then should be removed. This can be done yourself or by the home nursing staff if applicable. The entire unit is disposable once removed. Once removed, keep incision clean and dry. If redness or drainage is noted, please call your surgeon. IF INCISION IS LEAKING THROUGH DRESSING, CALL THE OFFICE . FOLLOW UP VISIT: If appointment is not already scheduled: Please call [facility] to make a follow-up appointment for 2 weeks after your surgery at . Stand-Alone Forms: [facility] [employer], Smoking Cessation Medications and DC Order Prescriptions: New acetaminophen [Tylenol Extra Strength] 500 mg Tablet 1,000 mg PO Q8 14 Days Qty: 84 0RF aspirin 81 mg Tablet,Delayed Release (Dr/Ec) 81 mg PO BID 30 Days Qty: 60 0RF polyethylene glycol 3350 [Miralax] 17 gram powder in packet 17 g PO DAILY PRN (Reason: constipation) Qty: 5 0RF oxycodone 5 mg tablet 5 mg PO Q4H MDD 6 PRN (Reason: pain) Qty: 30 0RF Continued metformin 1,000 mg tablet 1,000 mg PO BID Qty: 180 3RF cyanocobalamin (vitamin B-12) 2,000 mcg tablet 2,000 mcg PO QAM amlodipine 10 mg tablet 10 mg PO QAM lisinopril 40 mg tablet 40 mg PO QAM atenolol 50 mg tablet 50 mg PO QAM Jardiance 10 mg tablet 10 mg PO PM Discontinued aspirin [Adult Low Dose Aspirin] 81 mg tablet,delayed release (DR/EC) 81 mg PO QAM Discharge Orders: Discharge Order (Routine); Ordered 11/15/22 Ordered By: Shane Dillard/Other Patient Handouts: RICE, Total Knee Replacement, Knee Replace Manage Pain, Negative Pressure Wound Therapy Admission Data Admit Date/Time: 11/14/22 09:37 Attending Provider: Drew Bella Admit Provider: Drew Bella Primary Care Provider: Lizbeth Moe Other Providers: aPnkaj Williamson Other Interventions: Discharge Summary Assessment (RN) Last Done: 11/15/22 11:00
== END 2022-11-15 12:22 | disposition home or self-care (01) ==
LOC: 3E 05:09 → ASU 05:09